=== PATIENT | male | born 1955 | race Two or more races ===

== ENCOUNTER 2018-01-15 01:40 | Inpatient (IN) | payer OTHER ==
[2018-01-15] VITALS (21 sets, daily range): BP systolic 38–177; BP diastolic 19–94
[~2018-01-15] VITALS: Ht 167.6 cm; Wt 65.5 kg
--- NOTE | 2018-01-15 01:40 | NUR ---
TO BED 8 BIB PARAMEDICS C/O SOB, O2 SAT 82% ON RA PER EMS REPORT. RECEIVED PT AAOX4, CRACKLES HEARD BILATERALLY ON AUSCULTATION. SPO2 97% RA UPON ARRIVAL TO ER, PLACE PT ON 02@2L/NC/ PLACE PT ON CARDIAC MONITORING, CONITNUOUS POX. RESP EVEN AND MILDLY LABORED. STARTED SL 18G TO L HAND, BLOOD DRAWN AND SENT TO LAB.
--- NOTE | 2018-01-15 01:41 | NUR ---
ER MD AT BEDSIDE TO EVAL PT WITH ORDERS RECEIVED. WILL CARRY OUT ORDERS.
[2018-01-15] MEDS ORDERED: TAMS0.4C34 PO (01:50)
[2018-01-15] MEDS ORDERED: ASCO500C18 PO (01:50)
[2018-01-15] MEDS ORDERED: HYDR-548 PO (01:50)
[2018-01-15] MEDS ORDERED: METH4TAB17 PO (01:50)
[2018-01-15] MEDS ORDERED: FURO-145 PO (01:50)
[2018-01-15] MEDS ORDERED: LAMO25TA PO (01:50)
[2018-01-15] MEDS ORDERED: MORP30TA7 PO (01:50)
[2018-01-15] MEDS ORDERED: FLUT1DIS5 INH (01:50)
[2018-01-15] MEDS ORDERED: IV NS 0.9% 1,000 ML BAG IV ONE (02:00)
[2018-01-15] MEDS ORDERED: IPRATROPIUM NEB FS 0.5 MG/2.5 ML AMPUL.NEB NEB ONE ×3 (02:00)
[2018-01-15] MEDS ORDERED: ALBUTEROL FS 2.5 MG/0.5 ML VIAL.NEB NEB ONE ×3 (02:00)
--- NOTE | 2018-01-15 02:03 | NUR ---
PT ON HHN TX AT THIS TIME. WILL CONTINUE TO MONITOR PT CLOSELY.
[2018-01-15 02:06] LABS: HEMATOCRIT 32 % (39-51); HEMOGLOBIN 10.6 g/dL (13.5-17.5); LYMPHOCYTES # (AUTO) 2.5 /CMM (0.8-4.8); LYMPHOCYTES % (AUTO) 10.7 % (20.0-44.0); MEAN CORPUSCULAR HGB CONC 33 g/dl (31.0-36.0); MEAN CORPUSCULAR VOLUME 94 fL (80-96); MONOCYTES # (AUTO) 2.9 /CMM (0.1-1.30); MONOCYTES % (AUTO) 12.1 % (2.0-12.0); NEUTROPHILS # (AUTO) 18.2 /CMM (1.8-8.9); NEUTROPHILS % (AUTO) 77.2 % (43.0-81.0); PLATELET COUNT (AUTO) 370 /CMM (150-450); RDW COEFFICIENT OF VARIATION 16.2 (11.5-15.0); RED BLOOD CELL COUNT(AUTO) 3.39 MIL/uL (4.5-6.0); WHITE BLOOD COUNT (AUTO) 23.6 K/uL (4.3-11.0)
[2018-01-15] MEDS ORDERED: methylPREDNISolone SOD SUCC 125 MG/2ML VIAL ONE (02:09)
[2018-01-15] MEDS ORDERED: ALBUTEROL FS 2.5 MG/3 ML VIAL.NEB ONE (02:10)
[2018-01-15] MEDS ORDERED: IPRATROPIUM NEB FS 0.5 MG/2.5 ML AMPUL.NEB ONE (02:10)
[2018-01-15 02:25] LABS: TROPONIN I < 0.017 ng/mL (0.00-0.056)
[2018-01-15] MEDS ORDERED: methylPREDNISolone SOD SUCC 125 MG/2ML VIAL IV ONE (02:30)
[2018-01-15 02:31] LABS: ALANINE AMINOTRANSFERASE 36 U/L (12-78); ALBUMIN 1.8 g/dL (3.4-5.0); ALKALINE PHOSPHATASE 202 U/L (46-116); ASPARTATE AMINOTRANSFERASE 23 U/L (15-37); B-TYPE NATRIURETIC PEPTIDE 102 PG/ML (0-125); BILIRUBIN,DIRECT 0.2 mg/dL (0.0-0.2); BILIRUBIN,TOTAL 0.5 mg/dL (0.2-1.0); CALCIUM, SERUM 9.3 mg/dL (8.5-10.1); CHLORIDE 99 mmol/L (98-107); CREATININE 0.3 mg/dL (0.6-1.3); GLUCOSE 102 mg/dL (74-106); POTASSIUM 3.9 mmol/L (3.5-5.1); SODIUM SERUM 142 mmol/L (136-145); TOTAL PROTEIN, SERUM 6.3 g/dL (6.4-8.2); UREA NITROGEN, BLOOD 14 mg/dL (7-18)
[2018-01-15 02:33] LABS: CARBON DIOXIDE 42 mmol/L (21-32)
[2018-01-15] MEDS ORDERED: IOHEXOL-300 100 ML VIAL IV ONE (02:34)
[2018-01-15] MEDS ORDERED: IV NS 0.9% 250 ML IV ONE (02:34)
[2018-01-15] MEDS ORDERED: CT SWABBABLE VALVE TRANS SET 1 EA INFUS.SET MC ONE (02:34)
[2018-01-15 02:35] LABS: APPEARANCE,URINE CLEAR (CLEAR); BILIRUBIN,URINE 1+ (NEGATIVE); BLOOD, URINE NEGATIVE Ery/uL (NEGATIVE); KETONES,URINE 2+ (NEGATIVE); LEUKOCYTE ESTERASE ,URINE NEGATIVE (NEGATIVE); NITRITE, URINE NEGATIVE (NEGATIVE); PROTEIN,URINE 1+ mg/dl (NEGATIVE); UGLUCOSE NEGATIVE (NEGATIVE)
[2018-01-15 02:38] LABS: COLOR,URINE DARK YELLOW (YELLOW)
[2018-01-15 02:45] LABS: BACTERIA,URINE Moderate /HPF (None Seen); MUCUS,URINE Many /LPF (None Seen); RBC,URINE 0-2 /HPF (0-2); SQUAMOUS EPITHELIAL CELL,UR Few /HPF (None Seen); WBC,URINE 0-2 /HPF (0-3)
[2018-01-15] MEDS ORDERED: PIPERACILLIN /TAZOBACTAM 3.375 G in IV D5W 50 ML IV ONE (03:00)
[2018-01-15] MEDS ORDERED: VANCOMYCIN 1 GM in IV D5W 250 ML IV ONE (03:00)
[2018-01-15] MEDS ORDERED: PIPERACILLIN /TAZOBACTAM 3.375 G VIAL IV ONE (03:05)
[2018-01-15] MEDS ORDERED: VANCOMYCIN 1 GM VIAL ONE (03:05)
--- NOTE | 2018-01-15 03:20 | NUR ---
PT REFUSE BIPAP AT THIS TIME. RISKS EXPLAINED TO PT BUT PT REMAINS TO REFUSE BIPAP. ER MADE AWARE. PT REMAINS AAOX4 AT THIS TIME.
--- NOTE | 2018-01-15 03:21 | NUR ---
CALLED TO PT BEDSIDE TO PLACE PT ON BIPAP. INCREASED RR NOTED AND DECREASED SPO2. PT REFUSING BIPAP AT THIS TIME. PT PLACED ON N/C WITH HUMIDIFIER 6L Addendum: 01/15/18 at 0322 by WANDA VILLALOBOS RT Amended: Links added.
--- NOTE | 2018-01-15 03:36 | NUR ---
ER MD AT BEDSIDE TO RE-EVAL PT WITH ORDERS RECEIVED.
--- NOTE | 2018-01-15 03:42 | NUR ---
PETER YBARRA TALKING TO [facility] REGARDING PT ADMISSION.
--- NOTE | 2018-01-15 03:59 | NUR ---
PT TRANSPORTED TO RADIOLOGY FOR CT CHEST.
[2018-01-15] MEDS ORDERED: Magnesium 1 GM/2 ML VIAL IV ONE (04:00)
--- NOTE | 2018-01-15 04:18 | NUR ---
PT BACK FROM RADIOLOGY. AMILCAR DILLARD AT BEDSIDE TO SVETLANA LAFLEUR.
[2018-01-15] MEDS ORDERED: IV NS 0.9% 1,000 ML IV PRN (04:47)
[2018-01-15] MEDS ORDERED: Magnesium 1GM/D5W 100ML PREMIX 200 ML IV ONE (04:53)
[2018-01-15] MEDS ORDERED: MAG HYDROX/AL HYDROX/SIMETH 30 ML UDC PO PRN (05:00)
[2018-01-15] MEDS ORDERED: MAGNESIUM HYDROXIDE 30 ML UDC PO PRN (05:00)
[2018-01-15] MEDS ORDERED: MORPHINE SULFATE INJ 2 MG/ML DISP.SYRIN IV PRN (05:00)
[2018-01-15] MEDS ORDERED: HYDROCODONE/APAP 5/325MG 1 EACH TABLET PO PRN (05:00)
[2018-01-15] MEDS ORDERED: IPRATROPIUM NEB FS 0.5 MG/2.5 ML AMPUL.NEB NEB PRN (05:00)
[2018-01-15] MEDS ORDERED: ACETAMINOPHEN 325 MG TABLET PO PRN (05:00)
[2018-01-15] MEDS ORDERED: ONDANSETRON HCL/PF 4 MG/2 ML VIAL IVP PRN (05:00)
[2018-01-15] MEDS ORDERED: ALBUTEROL FS 2.5 MG/0.5 ML VIAL.NEB NEB PRN (05:00)
--- NOTE | 2018-01-15 05:02 | NUR ---
REPORT CALLED TO PATIENT REGISTRARSCOTT FONSECA. WILL TRANSPORT PT VIA ACLS PROTOCOL.
[2018-01-15] MEDS: PIPERACILLIN /TAZOBACTAM 3.375 G in IV D5W 50 ML IV SCH ×3 (06:00→17:23)
--- NOTE | 2018-01-15 06:27 | NUR ---
LIBRARY HISTORIAN. 0600 ZOSYN NOT GIVEN. PT LAST ZOSYN RECEIVED FROM ER AT 0300.
--- NOTE | 2018-01-15 06:28 | NUR ---
VULCANIZING PRESS OPERATOR. ADMISSION. RECEIVED THE PT FROM ER VIA [facility] ROOM 263 FOE COPD AND RESPIRATORY FAILURE. PT REFUSED BIPAP. OXYGEN 2L VIA NASAL CANNULA. SAT 94%. PT STILL TACHYPNEIC.NOVEL MADE AWARE.IV LT HAND 20GIVF NS 75ML/H.HOB ELEVATED. WILL CONTINUE TO MONITOR VITALS.
[2018-01-15 07:53] LABS: ABG BASE EXCESS 17.9 mmol/L; ABG OXYGEN SATURATION 95.2 % (92.0-98.5); ABG PCO2 77.4 mmHg (35.0-45.0); ABG PH 7.393 (7.350-7.450); COHb 0.3 % (0.5-1.5); MetHb 0.7 % (0.0-1.5); O2Hb 94.2 % (94.0-97.0); SITE, ABG Left Radial; VENT MODE, BG NASAL CANNULA
--- NOTE | 2018-01-15 08:21 | NUR ---
ICU/RN - Notes Pt lethargic, arousable to deep stimuli, mildly tachypneic RR 26, although appears comfortable on nasal cannula @ 2lpm. ABG results relayed to Dr Rivers. No new orders received per .
[2018-01-15] MEDS: PANTOPRAZOLE 40 MG VIAL IV SCH (08:32)
[2018-01-15] MEDS: methylPREDNISolone SOD SUCC 40 MG/ML VIAL IV SCH ×3 (08:32→16:00)
[2018-01-15] MEDS: LamoTRIgine 25 MG TABLET PO SCH (09:00)
[2018-01-15] MEDS: ASCORBIC ACID 500 MG TABLET PO SCH (09:00)
[2018-01-15] MEDS: FUROSEMIDE 20 MG TABLET PO SCH (09:00)
[2018-01-15] MEDS: TAMSULOSIN 0.4 MG CAP.SR.24H PO SCH (09:00)
[2018-01-15] MEDS ORDERED: FLUTICASONE/VILANTEROL 1 EACH BLST.W.DEV IH SCH (09:00)
[2018-01-15] MEDS ORDERED: FEE PK DOSING 1 MIN EA MC ONE (09:06)
--- NOTE | 2018-01-15 09:20 | NUR ---
ICU/RN - Notes Unable to give PO medications at this time. Pt lethargic, and when aroused pt states "No!". Reoriented and educated pt regarding medications, but unable to comprehend at this time.
[2018-01-15] MEDS: VANCOMYCIN 0.75 GM in IV D5W 250 ML IV SCH ×2 (09:24→18:25)
--- NOTE | 2018-01-15 09:57 | NUR ---
ICU/RN - Notes Pt refuses fishman catheter insertion, stating "Goodbye. Leave me alone." Reorientation and education regarding fishman catheter insertion provided, but pt still strongly refuses.
--- NOTE | 2018-01-15 10:55 | NUR ---
ICU/RN - Notes Pt confused attempting to sit up and climb out of bed several times. Reorientation provided to pt. Dr Rivers made aware of pt's confusion, ordered repeat ABG at noon.
--- NOTE | 2018-01-15 12:38 | NUR ---
ICU/RN - Notes Pt still confused attempting to sit up and climb out of bed, despite multiple reorientation. Pt appears with labored breathing and tachypnea, although denies short of breath when asked. Pt states "I'm fine." Dr Sevilla at bedside for evaluation, MD ordered 1:1 sitter for safety and close monitoring.
[2018-01-15 12:58] LABS: ABG BASE EXCESS 15.4 mmol/L; ABG PCO2 56.5 mmHg (35.0-45.0); ABG PO2 66.2 mmHg (75.0-100.0); AaDO2 95.9 mmHg; COHb 0.4 % (0.5-1.5); MetHb 0.3 % (0.0-1.5); O2Hb 93.3 % (94.0-97.0); SITE, ABG Right Radial; VENT MODE, BG 3L/MIN N/C
[2018-01-15] MEDS: IPRATROPIUM NEB FS 0.5 MG/2.5 ML AMPUL.NEB NEB SCH ×2 (16:30→19:17)
[2018-01-15] MEDS ORDERED: MORPHINE SULFATE INJ 4 MG/ML DISP.SYRIN IV PRN (16:30)
[2018-01-15] MEDS: ALBUTEROL FS 2.5 MG/0.5 ML VIAL.NEB NEB SCH ×2 (16:30→19:17)
--- NOTE | 2018-01-15 18:13 | NUR ---
ICU/RN - Notes Pt refused rapid influenza swab and blood to be draw for additional tests orders by Infectious Disease. Bari (EARTH SCIENCE PROFESSOR) made aware of pt's refusal, stating okay to add on to am draw tomorrow.
[2018-01-15] MEDS: AZITHROMYCIN 500 MG in IV D5W 250 ML IV SCH ×3 (18:36→19:30)
--- NOTE | 2018-01-15 19:30 | NUR ---
LEAD INGOT MOLDER NOTE PT IS LABORED BREATHING USING ACCESSORY MUSCLE. RESTLESS. UNCOOPERATIVE. MOVING IN BED. TRIED TO CALM HIM DOWN.
--- NOTE | 2018-01-15 19:50 | NUR ---
OIL RIGGER NOTE PT IN BED AWAKE. A/O X 1-2, PT IS VERY UNCOOPERATIVE. REFUSING IVF AND REFUSING IV ATB'S. STATES "REMOVE THE IV LINES BEFORE I PULL THEM OUT BY MY SELF". EXPLAINED THE PT ABOUT THE IMPORTANCE OF ATB AND IVF BUT PT DON'T WANT TO LISTEN ANYTHING AND GETTING ANGRY. DENIES PAIN. ON O2 3L VIA N/C O2 SAT 94%. H/L IN RT AND LT HAND INTACT AND PATENT. ON TELE SR/ST HR 112. PT DANGLE HIS RT LEG OFF THE BED BUT NOT TRYING TO GET OUT OF BED. SIDE RAILS UP X 3 AND CALL LIGHT WITHIN REACH. PT REFUSED TEMP CHECK. CONTINUE TO MONITOR HIM.
--- NOTE | 2018-01-15 21:00 | NUR ---
BACTERIOLOGIST SOIL NOTE ASSISTED PT TO BSC. PT ALSO WANTS TO GO HOME. CONFUSED. CONTINUE TO MONITOR HIM. KEPT ON REMOVING B/P CUFF.
--- NOTE | 2018-01-15 23:30 | NUR ---
DEEP FAT FRY COOK NOTE REYNA AVILES DNP INFORMED THAT PT IS REFUSING ALL HIS IV ATB'S AND IVF. VERY UNCOOPERATIVE. PT ALSO CALLED 2 X 911. REALITY AWARENESS PROVIDED.
[2018-01-16] VITALS (26 sets, daily range): BP systolic 128–168; BP diastolic 68–97
[2018-01-16] MEDS: IPRATROPIUM NEB FS 0.5 MG/2.5 ML AMPUL.NEB NEB SCH ×4 (00:40→20:28)
[2018-01-16] MEDS: ALBUTEROL FS 2.5 MG/0.5 ML VIAL.NEB NEB SCH ×4 (00:40→20:28)
[2018-01-16] MEDS: VANCOMYCIN 0.75 GM in IV D5W 250 ML IV SCH ×2 (01:33→10:00)
--- NOTE | 2018-01-16 02:35 | NUR ---
SPECIALTY DEVELOPMENT CONSULTANT NOTE INBOUND CALL CENTER REPRESENTATIVE LALITO CALLED AND GAVE PRELIMINARY RESULT OF BLOOD CX GRAM STAIN + COCCI IN CHAIN. REYNA TRACI INFORMED AND NO NEW ORDER RECEIVED. ALSO INFORMED HIM PT KEPT ON REFUSING IV ATB'S AND IVF.
--- NOTE | 2018-01-16 04:15 | NUR ---
CANAL BOAT OPERATOR NOTE PT AWAKE. KEPT ON GETTING UP IN BED. STILL REFUSING IVF AND IV ATB'S. REFUSING BED BATH. NO DISTRESS NOTED. PT ALSO REFUSED LABS DRAWN.
[2018-01-16] MEDS: PIPERACILLIN /TAZOBACTAM 3.375 G in IV D5W 50 ML IV SCH ×5 (05:43→17:48)
--- NOTE | 2018-01-16 06:20 | NUR ---
CONING MACHINE OPERATOR NOTE NOTED PT WALKING OUT OF UNIT THROUGH THE STAIRS, GRABBED THE PT SO HE CAN'T FALL. PT ALSO DID BM AND URINATED. BROUGHT HIM BACK TO ROOM ON W/C. NO FALLS OR INJURY NOTED. PT STATES "I JUST WANTED TO WALK AND I DON'T KNOW WHY I DID THAT WITHOUT OXYGEN". PT NOTED WITH SOB AND LABORED BREATHING. APPLIED O2 AT 3L VIA N/C O2 SAT 98%. B/P 143/82, DENIES PAIN. PATIENT DID NOT SLEPT ALL NIGHT, FINALLY FALLING ASLEEP.
--- NOTE | 2018-01-16 06:30 | NUR ---
CASH MANAGEMENT CLERK NOTE CHARGE NURSE AWARE THAT PT NEED SITTER, ALSO NURSING LEAF STICKER INFORMED ABOUT THE PT WHO NEED SITTER FOR SAFETY.
--- NOTE | 2018-01-16 06:46 | NUR ---
FLOWER POT PRESS OPERATOR NOTE PT IN BED ASLEEP, AROUSABLE. CONFUSED. ON O2 3L VIA N/C O2 SAT 98%. DENIES PAIN. NO DISTRESS OR DISCOMFORT NOTED. ON TELE SR 95. S/L IN RT AND LT HAND INTACT AND PATENT. PT CONTINUES TO REFUSE THE IVF AND IV ATB'S DURING THE SHIFT. REYNA AVILES DNP AWARE. NO NEW ORDERS GIVEN. SIDE RAILS UP X 3 AND CALL LIGHT WITHIN REACH. WILL ENDORSE TO DAY SHIFT NURSE FOR CONTINUE TO CARE.
--- NOTE | 2018-01-16 07:54 | NUR ---
RN INITIAL NOTES RECEIVED PT ASLEEP IN BED; VERBALLY RESPONSIVE TO STIMULI. HOB KEPT ELEVATED; REMAINS ON O2 INH VIA NC. WITH PADDED SIDERAILS; SR UP FOR SAFETY. BED ALARM ON.SINUS RHYTHM ON THE MONITOR. WILL CONTINUE TO MONITOR
--- NOTE | 2018-01-16 08:00 | NUR ---
RN NOTES ATTEMPTED TO HOOK PT BACK AND RESTART IVF BUT PT REFUSED
[2018-01-16] MEDS: PANTOPRAZOLE 40 MG VIAL IV SCH (08:07)
[2018-01-16] MEDS: methylPREDNISolone SOD SUCC 40 MG/ML VIAL IV SCH ×3 (08:07→17:00)
[2018-01-16] MEDS: LamoTRIgine 25 MG TABLET PO SCH (08:13)
[2018-01-16] MEDS: TAMSULOSIN 0.4 MG CAP.SR.24H PO SCH (08:13)
[2018-01-16] MEDS: ASCORBIC ACID 500 MG TABLET PO SCH (08:14)
[2018-01-16] MEDS: FUROSEMIDE 20 MG TABLET PO SCH (08:14)
--- NOTE | 2018-01-16 08:29 | NUR ---
RN NOTES PT REFUSED PO MEDS
[2018-01-16 09:39] LABS: BASOPHILS % (AUTO) 0.1 % (0.0-2.0); HEMATOCRIT 29 % (39-51); HEMOGLOBIN 9.9 g/dL (13.5-17.5); LYMPHOCYTES # (AUTO) 0.7 /CMM (0.8-4.8); LYMPHOCYTES % (AUTO) 3.5 % (20.0-44.0); MEAN CORPUSCULAR HGB CONC 34 g/dl (31.0-36.0); MEAN CORPUSCULAR VOLUME 93 fL (80-96); MONOCYTES # (AUTO) 0.3 /CMM (0.1-1.30); MONOCYTES % (AUTO) 1.7 % (2.0-12.0); NEUTROPHILS # (AUTO) 18.7 /CMM (1.8-8.9); NEUTROPHILS % (AUTO) 94.7 % (43.0-81.0); PLATELET COUNT (AUTO) 341 /CMM (150-450); RED BLOOD CELL COUNT(AUTO) 3.18 MIL/uL (4.5-6.0); WHITE BLOOD COUNT (AUTO) 19.8 K/uL (4.3-11.0)
[2018-01-16 09:40] LABS: CALCIUM, SERUM 8.7 mg/dL (8.5-10.1); CREATININE 0.4 mg/dL (0.6-1.3); MAGNESIUM 2.5 mg/dL (1.8-2.4); PHOSPHORUS 3.4 mg/dL (2.5-4.9); POTASSIUM 3.4 mmol/L (3.5-5.1)
--- NOTE | 2018-01-16 10:00 | NUR ---
RN NOTES PT SEEN AND ASSESSED BY DR NIX; INFORMED MD PT BEING UNCOOPERATIVE AND REFUSING MEDS. IVHL NONWORKING; ATTEMPTED TO REINSERT PT REFUSED. MD AND GLUE MACHINE OPERATOR AWARE RE PTS BEHAVIOR.
[2018-01-16 10:08] LABS: LYMPHOCYTES % (MANUAL) 12 % (16-48); MONOCYTES % (MANUAL) 5 % (0-11.0); NEUTROPHILS % (MANUAL) 83 (42-76)
[2018-01-16 10:17] LABS: THYROID STIMULATING HORMONE 0.119 uIU/mL (0.358-3.74)
--- NOTE | 2018-01-16 11:42 | NUR ---
RN NOTES PT TRYING TO GET OUT OF BED; INSISTED TO LEAVE, REFUSING ASSISTANCE
--- NOTE | 2018-01-16 12:03 | NUR ---
RN NOTES SPEECH PATHOLOGIST AT BEDSIDE FOR EVAL SWALLOW. PER ST ASSESSMENT. PATIENT MAY HAVE MECHANICAL SOFT DIET.
--- NOTE | 2018-01-16 12:13 | NUR ---
RN NOTES PATIENT CONTINUES TO REFUSE IV INSERTION DESPITE THE IMPORTANCE FOR IV MEDICATION NEEDS BUT STRONGLY REFUSED. CHARGE NURSE ALLEN SO.
[2018-01-16] MEDS: AZITHROMYCIN 500 MG in IV D5W 250 ML IV SCH (17:47)
--- NOTE | 2018-01-16 17:48 | NUR ---
rn notes PT WITH DUE IV MEDS ; PT STILL REFUSING IV ACCESS; EXPLAINED RISK AND BENEFITS BUT PT STRONGLY REFUSED. DR NIX INFORMED EARLIER. PT SEEN BY DR LAWTON; AWARE PT NOT GETTING ANTIBIOTIC ORDERED; PT REFUSING IV LINE INSERTION.
--- NOTE | 2018-01-16 18:44 | NUR ---
RN CLOSING NOTES ENDORSED PT IN STABLE CONDITION FOR CONTINUITY OF CARE
--- NOTE | 2018-01-16 22:00 | NUR ---
BEATER MACHINE OPERATOR - REC'D PT. INITIALLY IN ICU. STAFF & RN TRANSFERRED PT. DOWN TO [facility] W/ACLS PROTOCOL. PT. WAS ADMITTED INTO RM#[id number]. PT. HAS 1:1 SITTER DUE TO PT. NONCOM - PLIANCY. PT.IS STILL REFUSING ALL MEDS, LAB DRAWS, PIV'S. PT. WILL LET RT PERFORM A RESP. TX ROUTINELY. PT. WAS ADM. A PARTIAL BEDBATH BY 1:1 SITTER. PT.IS SITTING IN A HIGH FOWLERS POSITION WHEN EATING OR DRINKING. OCCASIONALLY, PT. WILL CHOKE ON SANDWICH OR H20. PT. DOES HAVE N/P COUGHING JAGS. PT.REMAINS ON O2/3L/NC WITH LUNG CASTILLO RHONCHUS W/RALES. AFEBRILE. HEART MONITOR SHOWS SR/ST. ALL PULSES PALPABLE X 4 EXT. CONT.POC.
[2018-01-17] VITALS: BP 158/80
[2018-01-17] MEDS: IPRATROPIUM NEB FS 0.5 MG/2.5 ML AMPUL.NEB NEB SCH ×2 (01:48→07:29)
[2018-01-17] MEDS: ALBUTEROL FS 2.5 MG/0.5 ML VIAL.NEB NEB SCH ×2 (01:48→07:29)
[2018-01-17 04:00] VITALS: BP 161/88
[2018-01-17] MEDS: PIPERACILLIN /TAZOBACTAM 3.375 G in IV D5W 50 ML IV SCH ×3 (06:00)
--- NOTE | 2018-01-17 06:30 | NUR ---
RECOATING MACHINE OPERATOR - PT. REMAINS REFUSING ANY IV'S,CERTAIN MEDS,ETC. PT.IS NONCOMPLIANT & BE - COMES SOB VERY EASILY UPON ANY MOVEMENT. PT. WAS LETTING RT PERFORM RT TX'S, BUT REFUSED AT ONE AM. 1:1 SITTER AT BS. UOP = 400CC FOR 12 HR. SHIFT. PT.SLEPT INTERMIT- TENTLY. PT. IS CURRENTLY IN STABLE CONDITION FOR LUIS DANIEL. NO S/S OF DISTRESS, BUT PT. IS "CANNOT GET COMFORTABLE"-VERBATIM. RN WILL ENDORSE REPORT TO GISSEL CHAVEZ. CONT. POC.
--- NOTE | 2018-01-17 07:39 | NUR ---
[facility] RN NOTES PATIENT IS IN BED , AWAKE ALERT, ORIENTEDX4 ON 3L OF O2 , WITH SLIGHT SOB NOTED LUNGS SOUND WITH WHEEZING AND DIMINISHED , ON TELE MONITOR SR 87, USING URINAL KEEP CLEAN AND DRY , HAVING BREAKFAST AT THIS TIME , ATE 25%, RT AT BEDSIDE BUT REFUSING BREATHING TREATMENT . NO COMPLINE OF PAIN AND DISCOMFORT THIS TIME . BED IS LOCKED IN LOWEST POSITION , BOTH BEDSIDE RAILS ARE UP, CALL LIGHT IS IN REACH , BED ALARM IS ON WITH THE SITTER 1 :1.PLAN OF CARE DISCUSSED WITH THE PATIENT AND UNDERSTOOD.WILL CONTINUE TO MONITOR CLOSELY.
[2018-01-17 08:00] VITALS: BP 158/85
[2018-01-17] MEDS: TAMSULOSIN 0.4 MG CAP.SR.24H PO SCH (08:24)
[2018-01-17] MEDS: FUROSEMIDE 20 MG TABLET PO SCH (08:26)
[2018-01-17] MEDS: methylPREDNISolone SOD SUCC 40 MG/ML VIAL IV SCH (08:28)
[2018-01-17] MEDS: LamoTRIgine 25 MG TABLET PO SCH (08:28)
[2018-01-17] MEDS: PANTOPRAZOLE 40 MG VIAL IV SCH (08:28)
[2018-01-17] MEDS: ASCORBIC ACID 500 MG TABLET PO SCH (08:29)
--- NOTE | 2018-01-17 08:30 | NUR ---
LICENSING REPRESENTATIVE NOTE CALLED RT BREATHING TX DONE
--- NOTE | 2018-01-17 09:03 | NUR ---
[facility] RN NOTES DOCTOR NIX IS BEDSIDE SPOKE WITH THE PATIENT, AWARE THAT HE REFUSED LAMECTAL, VITAMIN C, AND ALL IV MEDICATIONS. PHYSICAL THERAPY . PATIENT WANTS TO LEAVE AGAINST MEDICAL ADVICE, DOCTOR AWARE AND SPOKE TO THE PATIENT. PATIENT IS ALERT, ORIENTED X4, PATIENT SAID THAT HE HAS MONEY AND LEAVING WITH THE PLAN OF STAYING AT THE [facility]
--- NOTE | 2018-01-17 09:15 | NUR ---
[facility] RN NOTE TELE REMOVED , PLACED ON W\C PATIENT EAGER TO GO AMA AT THIS TIME REFUSED TO WAIT FOR INSTRUCTION , STATED I WANT GO NOW ,STILL EXPLAINED THAT PATIENT AT RISK FOR SOB , NO O2 AVAILABLE AT [facility], SALTED DONT WORRY ABOUT I AM OK , PATIENT RIGHT RESPECTED , TAKEN TO LOBBY ,STILL WITH SLIGHT SOB NOTED , STATED THAT HE WILL CALL FIEND TO PICK HIM UP [facility]UR[facility] OF HOSPITAL NOTIFIED Addendum: 01/17/18 at 0946 by MICHELLE GARCIA RN CORRECTION GASTON STATED , FRIEND, TAKEN TO THE LOBBY ON WHEELCHAIR
--- NOTE | 2018-01-17 09:41 | NUR ---
[facility] RN NOTES DR BUCHANAN NOTIFIED THAT PATIENT LEFT AGAINST MEDICAL ADVISE DESPITE EXPLANATION OF BENEFITS OF STAYING IN HOSPITAL
== END 2018-01-17 09:51 | disposition left against medical advice (07) | DRG 720 ==
LOC: ER 01:41 → ICU 03:56 → TELE-TD 01-16 19:37
PROVIDERS: ADMIT Nurse Practitioner Acute Care; ATTEND Nurse Practitioner Acute Care
DX: A41.9 Sepsis, unspecified organism (principal); J96.21 Acute and chronic respiratory failure with hypoxia; G92 Toxic encephalopathy; J15.6 Pneumonia due to other Gram-negative bacteria; R16.1 Splenomegaly, not elsewhere classified; J43.2 Centrilobular emphysema; J15.9 Unspecified bacterial pneumonia; Z99.81 Dependence on supplemental oxygen; F32.9 Major depressive disorder, single episode, unspecified; G40.909 Epilepsy, unspecified, not intractable, without status epilepticus; Z87.891 Personal history of nicotine dependence; J96.22 Acute and chronic respiratory failure with hypercapnia; Z86.718 Personal history of other venous thrombosis and embolism; N40.0 Benign prostatic hyperplasia without lower urinary tract symptoms; I10 Essential (primary) hypertension; F41.9 Anxiety disorder, unspecified; Z79.899 Other long term (current) drug therapy; R20.8 Other disturbances of skin sensation; T40.2X5A Adverse effect of other opioids, initial encounter; Y92.129 Unspecified place in nursing home as the place of occurrence of the external cause; D35.02 Benign neoplasm of left adrenal gland; I89.8 Other specified noninfective disorders of lymphatic vessels and lymph nodes; G89.4 Chronic pain syndrome; D64.9 Anemia, unspecified
CPT/HCPCS: 36415; 36600; 71045-TC; 71250-TC; 80048-TC; 80061-TC; 80076-TC; 80202-TC; 81000-TC; 82728-TC; 82746; 82785; 82803-TC; 83540-TC; 83605-TC; 83615-TC; 83735-TC; 83880; 84100-TC; 84443-TC; 84484-TC; 85025-TC; 87040-TC; 87081-TC; 87086-TC; 87186-TC; 87899; 92611-TC; A4606; C1751; C9113; J0456; J2270; J2405; J2543; J2920; J2930; J3370; J3475; J7030; J7050; J7060; Q9967; Z7610